=== PATIENT | female | born 1970 | race Caucasian/White ===

== ENCOUNTER 2019-11-15 08:55 | Emergency (ER) | payer OTHER ==
[2019-11-15] MEDS ORDERED: OXYCODONE-ACETAMINOPHEN 5-325 MG TABLET PO ONE (09:25)
--- NOTE | 2019-11-15 09:33 | ER Document Report ---
ED Hand/Wrist Injury - General Chief Complaint: Wrist Injury Stated Complaint: FALL - RIGHT ARM INJURY Time Seen by Provider: 11/15/19 09:10 Mode of Arrival: Ambulatory Information source: Patient Notes: This 49-year-old female patient comes emergency room for right wrist injury. She reports slipping on a wet floor in the kitchen about 9 PM last night and landing on her right hand of her outstretched arm. There were no other injuries. There is pain, swelling, and deformity of the right wrist. - Related Data Allergies/Adverse Reactions: No Known Allergies Allergy (Verified 11/15/19 09:19) Home Medications: Levothyroxin. Buspar. Tresiba. Lexapro. 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 Lives with: Family Family History: Reviewed & Not Pertinent Patient has homicidal ideation: No - Past Medical History Cardiac Medical History: Reports: Hx Hypertension Endocrine Medical History: Reports: Hx Diabetes Mellitus Type 2, Hx Hypothyroidism Psychiatric Medical History: Reports: Hx Anxiety Past Surgical History: Reports: Hx Section - x3, Hx Gastric Bypass Surgery - With Shiloh-en-Y, Hx Thyroid Surgery - Partial thyroidectomy, Hx Tonsillectomy Review of Systems - Review of Systems Constitutional: No symptoms reported EENT: No symptoms reported Cardiovascular: No symptoms reported Respiratory: No symptoms reported Gastrointestinal: No symptoms reported Genitourinary: No symptoms reported Female Genitourinary: Other - Perimenopausal, periods now occurring about every other month. Musculoskeletal: No symptoms reported Skin: No symptoms reported Hematologic/Lymphatic: No symptoms reported Neurological/Psychological: No symptoms reported Physical Exam - Vital signs Vitals: Temp Pulse Resp BP Pulse Ox 97.6 F 109 H 20 146/82 H 98 11/15/19 09:00 11/15/19 09:00 11/15/19 09:00 11/15/19 09:00 11/15/19 09:00 Interpretation: Normal - General General appearance: Appears well, Alert In distress: None - HEENT Head: Normocephalic, Atraumatic Eyes: Normal Pupils: PERRL - Respiratory Respiratory status: No respiratory distress Breath sounds: Normal - Cardiovascular Rhythm: Regular Heart sounds: Normal auscultation Murmur: No - Abdominal Inspection: Obese Distension: No distension Bowel sounds: Normal Tenderness: Nontender - Back Back: Normal - Extremities General upper extremity: Other - Right wrist tender swollen some flexion deformity. Capillary refill and fingertip sensation is intact. General lower extremity: Normal inspection - Neurological Neuro grossly intact: Yes - Psychological Associated symptoms: Normal affect, Normal mood - Skin Skin Temperature: Warm Skin Moisture: Dry Skin Color: Normal Course - Re-evaluation Re-evalutation: 11/15/19 13:10 Sugar tong splint was placed on the right forearm and wrist by the PCT. It fit well. Sensation and capillary refill to the fingertips remained intact. The splint provided comfort and prevention of motion at the wrist. A sling was placed by the PCT to place on the right arm to provide support for the weight of the splint. It fit well. 11/15/19 15:10 I did speak with 2 different local orthopedic surgeons, neither of whom were on- call for emergency room. One was out on his boat and not available, the other was out of town. Both said they could see the patient in the office Sunday. I then called Dr. Cole who is on-call for the emergency room, he had just recently left the facility and was almost back in [place]. He looked at her pictures and also said that he could see her in the office on Sunday. The patient is planning to return to her home near [place] tomorrow, and does have an orthopedic surgeon where she lives so she will follow-up with her orthopedic surgeon in the [place] area on Sunday. - Vital Signs Vital signs: Temp Pulse Resp BP Pulse Ox 98.5 F 82 16 127/81 H 99 11/15/19 13:02 11/15/19 13:02 11/15/19 13:02 11/15/19 13:02 11/15/19 13:02 - Diagnostic Test Radiology reviewed: Image reviewed, Reports reviewed - Acute right distal radius metaphysis fracture with dorsal angulation of the articular surface. No extension into the radiocarpal joint. Discharge - Discharge Clinical Impression: Colles' fracture of right radius Qualifiers: Encounter type: initial encounter Fracture type: closed Qualified Code(s): S52.531A - Colles' fracture of right radius, initial encounter for closed fracture Condition: Stable Disposition: HOME, SELF-CARE Additional Instructions: Fracture You have a fracture. The typical broken bone requires only protection and sufficient time for healing. "Setting" is necessary only if the bones are crooked or out of position. The initial treatment is immobilization, elevation of the injury, and cold packs. The length of time required for healing depends on the location and type of fracture, and on the age of the patient. The treatment plan the physician has outlined for you is customized to your fracture and health condition. Call the doctor or return at once if pain becomes severe, or if severe swelling or numbness develop. You have a Colles' fracture of the right wrist. Keep the splint on to protect the wrist. Elevate your hand above your heart all the time to help reduce swelling. Use ice packs today and tomorrow to help limit swelling. Take the pain medication as prescribed if needed. Take stool softeners and drink plenty of fluids to prevent constipation from the pain medication. Follow-up with your orthopedic doctor Sunday. Take the CD of your x-rays with you. RETURN TO THE EMERGENCY ROOM IF ANY NEW OR WORSENING SYMPTOMS. Prescriptions: Oxycodone HCl/Acetaminophen [Percocet 5-325 mg Tablet] 1 tab PO ASDIR PRN #15 tablet PRN Reason:
--- NOTE | 2019-11-15 10:11 | RADIOLOGY REPORT (SQ) ---
EXAM DESCRIPTION: WRIST RIGHT 3 VIEWS IMAGES COMPLETED DATE/TIME: 11/15/2019 9:43 am REASON FOR STUDY: Follow-up, pain and swelling COMPARISON: None. NUMBER OF VIEWS: Three views. TECHNIQUE: AP, lateral, and oblique radiographic images acquired of the right wrist. LIMITATIONS: None. FINDINGS: MINERALIZATION: Normal. BONES: Acute right distal radius metaphysis fracture with dorsal angulation of the distal fracture fr agment/articular surface. No extension into the radiocarpal joint. No gross ulnar styloid fracture. Carpal bones, proximal metacarpals intact. SOFT TISSUES: Diffuse soft tissue swelling. No foreign body. OTHER: No other significant finding. IMPRESSION: Acute right distal radius metaphysis fracture with dorsal angulation of the articular carcamo rface. No extension into the radiocarpal joint. TECHNICAL DOCUMENTATION: JOB ID: [id number] [employer]- All Rights Reserved Reading location - IP/workstation name: [id number]
[2019-11-15 13:08] VITALS: BP 127/81
== END 2019-11-15 13:06 | disposition home or self-care (01) ==
LOC: ER 08:55
PROC: 2W3CX1Z Immobilization of Right Lower Arm using Splint (ICD-10-PCS; principal; 2019-11-15)
DX: S52.531A Colles' fracture of right radius, initial encounter for closed fracture (principal); M25.531 Pain in right wrist; M79.89 Other specified soft tissue disorders; W01.0XXA Fall on same level from slipping, tripping and stumbling without subsequent striking against object, initial encounter; Z79.899 Other long term (current) drug therapy; I10 Essential (primary) hypertension; E11.9 Type 2 diabetes mellitus without complications
CPT/HCPCS: 99283